=== PATIENT | female | born 1960 | race Caucasian/White ===

== ENCOUNTER 2024-11-21 10:27 | Emergency (ER) | payer OTHER, MEDICAID ==
[~2024-11-21] VITALS: Ht 154.9 cm; Wt 81.1 kg
--- NOTE | 2024-11-21 11:12 | ED.PDOC ---
Musculoskeletal HPI Comments 64 year old female presents to the ED with chief complaint of left knee pain. Patient reports that she has been experiencing left knee pain and swelling with associated nausea since a week ago when one of the verduzco's cysts behind her left knee popped. Patient relays that she has a lot of varicose veins to bilateral legs. Patient states her doctor Dr. Fong advised her to come to the ED for further evaluation. Patient denies any vomiting, numbness, weakness, chest pain, SOB, dizziness, or headache. Chief Complaint: Lower Extremity Time Seen by MD: 11:08 Primary Care Provider: NONE Reviewed Notes: Nurses Notes, Medications, Allergies Allergies: Coded Allergies: NO KNOWN ALLERGIES (Unverified , 07/27/12) Information Source: Patient Mode of Arrival: Ambulatory Location: Left Extremity Location: Knee Timing: Weeks Prehospital treatment: None Severity: Moderate Able to Move Extremity: Yes Bear Weight: Limited Pain: Moderate Mechanism: Spontaneous Circumstances: Other (Verduzco's Cyst popped) Onset of Symptoms: Spontaneous Symptoms: Swelling, Pain, Erythema DVT Risk Factors: NONE Past Medical History PAST MEDICAL HISTORY: DM, HTN Past Medical History (Other): Varicose veins Surgical History: Denies all surgeries BEAR KEEPER History: No Pertinent BEAR KEEPER History Family History Family History: Reviewed,noncontributory to illness, Unknown Social History Smoker: Cigarettes Alcohol: Denies ETOH Use Drugs: Denies Drug Use Lives In: Home Constitutional: denies: chills, diaphoresis, fatigue, fever, malaise, sweats, weakness, others EENTM: denies: blurred vision, double vision, ear bleeding, ear discharge, ear drainage, ear pain, ear ringing, eye pain, eye redness, hearing loss, mouth pain, mouth swelling, nasal discharge, nose bleeding, nose congestion, nose pain, photophobia, tearing, throat pain, throat swelling, voice changes, others Respiratory: denies: cough, hemoptysis, orthopnea, SOB at rest, shortness of breath, SOB with excertion, stridor, wheezing, others Cardiovascular: denies: chest pain, dizzy spells, diaphoresis, Dyspnea on exertion, edema, irregular heart beat, left arm pain, lightheadedness, palpitations, PND, syncope, others Gastrointestinal: reports: nausea; denies: abdomen distended, abdominal pain, blood streaked bowels, constipated, diarrhea, dysphagia, difficulty swallowing, hematemesis, melena, poor appetite, poor fluid intake, rectal bleeding, rectal pain, vomiting, others Genitourinary: denies: abnormal vagina bleeding, burning, dyspareunia, dysuria, flank pain, frequency, hematuria, incontinence, pain, , vagina discharge, urgency, others Neurological: denies: dizziness, fainting, headache, left sided numbness, left sided weakness, numbness, paresthesia, pre-existing deficit, right sided numbness, right sided weakness, seizure, speech problems, tingling, tremors, weakness, others Musculoskeletal: reports: others (Left knee swelling and pain); denies: back pain, gout, joint pain, joint swelling, muscle pain, muscle stiffness, neck pain Integumetry: denies: bruises, change in color, change in hair/nails, dryness, laceration, lesions, lumps, rash, wounds, others Allergic/Immunocompromised: denies: Difficulty Healing, Frequent Infections, Hives, Itching, others Hematologic/Lymphatic: denies: anemia, blood clots, easy bleeding, easy bruising, swollen glands, others Endocrine: denies: excessive hunger, excessive sweating, excessive thirst, excessive urination, flushing, intolerance to cold, intolerance to heat, unexplained weight gain, unexplained weight loss, others Psychiatric: denies: anxiety, bipolar disorder, depression, hopeless, panic disorder, schizophrenia, sleepless, suicidal, others All Other Systems: Reviewed and Negative Physical Exam General Appearance: Moderate Distress, Normal HEENT: Normal ENT Inspection, PERRL/EOMI Neck: Full Range of Motion, Non-Tender, Normal, Normal Inspection Respiratory: Chest Non-Tender, Lungs Clear, No Accessory Muscle Use, No Res piratory Distress, Normal Breath Sounds Cardiovascular: No Edema, No JVD, No Murmur, No Gallop, Normal Peripheral Pulses, Regular Rate/Rhythm Breast Exam: Deferred Gastrointestinal: No Organomegaly, Non Tender, No Pulsatile Mass, Normal Bowel Sounds, Soft Genitalia: Deferred Pelvic: Deferred Rectal: Deferred Extremities: No calf tenderness, Normal capillary refill, Normal range of motion, Non-tender, No pedal edema, Other (Varicose vein) Musculoskeletal : Apperance: Normal Neurologic: Alert, 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 Was a procedure done?: No Differential Diagnosis EXT Differential Diagnosis: Cellulitis, Sprain, Strain X-Ray, Labs, Meds, VS Vital Signs Date Time Temp Pulse Resp B/P (MAP) Pulse Ox O2 Delivery O2 Flow Rate FiO2 11/21/24 12:42 97.4 81 18 161/83 (109) 97 97.4 11/21/24 10:53 97.4 81 81 161/83 (109) 97 Patient alert. Came in because of swelling behind the knee. DVT study within normal limits. Vitals stable. Answering all questions. Blood pressure slightly elevated. Was given clonidine. She does have popliteal cyst. Chronic. No shortness a breath. No chest pain. No calf tenderness. Varicose veins. Explained to the patient. Was told to follow up with her primary care physician. Was told to come back if there is any problem. Time of 1ST Reevaluation: 12:08 Reevaluation 1ST: Unchanged Patient Education/Counseling: Diagnosis, Treatment Family Education/Counseling: No Family Present Additional Information I reviewed the following notes from patient's past medical encounters: None The following tests were ordered, and results were reviewed by me: Bilateral DVT US Additional Information was gathered from interviewing the following independent historians: None I reviewed and agreed with the following test results read by other providers: Bilateral DVT US I discussed treatment and results with medical personnel. Departure 1 Departure Time of Disposition: 12:52 Impression: Primary Impression: Hypertension Qualified Codes: I10 - Essential (primary) hypertension Additional Impression: Varicose vein of leg Qualified Codes: I83.92 - Asymptomatic varicose veins of left lower extremity Disposition: 01 HOME / SELF CARE / HOMELESS Condition: Good Discharged With: Self Critical Care Note Critical Care Time?: No Stability Stability form required: No Heart Score Heart Score: Heart Score Response (Comments) Value History N/A 0 EKG N/A 0 Age N/A 0 Risk Factors N/A 0 Troponin N/A 0 Total 0 I personally scribed for LUIS DE LOS SANTOS MD ([email or web address]) on 11/21/24 at 11:12. Electronically submitted by Nick Campoverde ([email or web address]). LUIS DE LOS SANTOS MD Nov 21, 2024 11:12
--- NOTE | 2024-11-21 12:30 | DVH ---
US LT Lower DVT HISTORY: dvt COMPARISON: None TECHNIQUE: Duplex Doppler evaluation of the deep venous system of the lower extremity from the common femoral veins, superficial femoral vein, great saphenous vein, deep femoral vein, popliteal vein, an d calf veins, including color Doppler and spectral/pulsed waveform analysis, was performed. FINDINGS: Left: - Common femoral vein: Compressible - Deep femoral vein: Compressible - Femoral vein: Compressible - Popliteal vein: Compressible - Posterior tibial vein: Waveforms present - Other: 3.1 x 2.1 x 1.7 cm sharpe cyst. IMPRESSION: No left lower extremity deep venous thrombosis.
[2024-11-21 13:05] VITALS: BP 140/56; PULSE 71; RESP 18; TEMP 98.4; O2SAT 95
[2024-11-21] MEDS: cloNIDine HCL 0.1 MG TAB PO ONE (13:05)
== END 2024-11-21 13:10 | disposition home or self-care (01) ==
LOC: ER 10:27
DX: I83.92 Asymptomatic varicose veins of left lower extremity (principal); I10 Essential (primary) hypertension; E11.9 Type 2 diabetes mellitus without complications; R11.0 Nausea; F17.210 Nicotine dependence, cigarettes, uncomplicated
CPT/HCPCS: 93971

== ENCOUNTER 2025-07-23 16:28 | Inpatient (IN) | payer OTHER, MEDICAID ==
[~2025-07-23] VITALS: Ht 160 cm; Wt 82.3 kg
--- NOTE | 2025-07-23 16:56 | ED.PDOC ---
History of Present Illness HPI Comments HPI: 65 year old female presents to the ED with a chief complaint of flu-like symptoms onset last night. Patient states she began experiencing fever, chills, body aches, generalized weakness, ear pain, nausea since last night. During triage, patient's temperature was 102.5 F. She is concerned for possible COVID, last time she had COVID was 2 years ago, experienced similar symptoms. Denies vomiting, diarrhea, dizziness, shortness of breath, dysuria, hematuria. No other symptoms or modifying factors present at this time. Initial Vitals BP: 152/64 HR: 104 RR: 16 O2: 95% Temp: 102.5 F Past Medical History: HTN, DM Past Surgical History: appendectomy, cholecystectomy, Social History: Denies ETOH, and drug use. Patient admits to smoking. Medications: Denies Allergies: Sulfa drugs, Levaquin, Demerol HPI: Poor Historian. REVIEW OF SYSTEMS: CONSTITUTIONAL: Denies acute: diaphoresis, chills, HEAD: Denies acute: headache, photophobia Eyes: Denies acute: Double vision, vision loss, eye pain, eye discharge. EARS: Denies acute: tinnitus, hearing loss, ear discharge, ear pain, THROAT: Denies acute: sore throat, swelling, difficulty swallowing , pain with swal lowing, change in voice. NECK: Denies acute: neck pain, neck swelling, stiff neck. HEART: Denies acute : chest pain, palpitations, LUNGS: Denies acute: SOB, wheezing, cough, hemoptysis ABDOMEN: Denies acute: abdominal pain, Nausea, Vomiting, diarrhea, melena , hematemesis, hematochezia SKIN: Denies acute: rash, redness, lesions, itchiness. EXTREMITIES: Denies acute: calf pain, numbness, tingling, weakness, denies pain in extremity. Denies acute: Low back pain. Neuro: Denies acute: focal neurological deficit, motor or sensory focal neurological deficit, tremors, seizure like activity, confusion, dizziness, change in mental status, loss of bowel or bladder function, cauda equina like symptoms. : Denies acute: dysuria, hematuria, flank pain, increase in urinary frequency. PSYCH: Denies acute: hallucination, suicidal ideation, homicidal ideation. FEMALE: Denies acute: abnormal vaginal bleeding, foul odor, unusual discharge. PHYSICAL EXAM: General: -----moderate---acute distress, awake and alert. Head: normocephalic, atraumatic. Neck: supple, trachea is midline, no swelling. Throat: Normal phonation. Eyes:, no erythema, no purulent discharge, no proptosis, no icterus. Heart: regular rate, regular rhythm, no significant murmur appreciated. Lungs: no apparent respiratory distress, Able to speak in full sentences. No wheezing, no rhonchi, no crackles. No stridors Clear to auscultation bilaterally. Abdomen: non tender to palpation, non distended, soft, no guarding, no rebound, + bowel sounds. Neuro: Awake, Alert, oriented to name, self, situation, follows commands GCS=15. Speech is normal. Skin: no petechia, no purpura, no cyanosis, non-pale, not jaundice. Lower extremities: --no - Pitting edema no deformity, no focal swelling, no calf TTP. Makes eye contact. moves all four extremities. Face: no apparent facial droop. ED COURSE: DISCLAIMER: This medical document was created using an electronic medical record system with voice recognition software and computerized dictation system. Although this document has been carefully reviewed, there might still be some phonetic and typographical errors. Occasional wrong-word or "sound-alike" substitutions may have occurred due to the inherent limitations of voice recognition software. These areas are purely typographical due to imperfections of the software programs and do not reflect any compromise in the patient's medical care. Please read the chart carefully and recognize, using context, where these substitutions have occurred. Chief Complaint: Flu like Time Seen by MD: 16:40 Reviewed Notes: Medications, Allergies Information Source: Patient, Relative Mode of Arrival: Wheelchair Timing: Days Duration: Since onset Prehospital treatment: None Severity: Moderate Fever: Temperature max (102.5) Context: Recent: None History of: Diabetes Symptoms: Fever, Chills, Ear pain Modifying Factors: Nothing Associated Signs and Symptoms: Weakness Past Medical History PAST MEDICAL HISTORY: DM, HTN Surgical History: Appendectomy, Cholecystectomy, ART OBJECTS REPAIRER History: No Pertinent ART OBJECTS REPAIRER History Family History Family History: Reviewed,noncontributory to illness, Unknown Social History Smoker: Cigarettes Alcohol: Denies ETOH Use Drugs: Denies Drug Use Lives In: Home Was a procedure done? Was a procedure done?: No X-Ray, Labs, Meds, VS Vital Signs Date Time Temp Pulse Resp B/P (MAP) Pulse Ox O2 Delivery O2 Flow Rate FiO2 07/23/25 16:31 102.5 104 16 152/64 95 102.5 Lab Test 07/23/25 20:41 07/23/25 20:17 07/23/25 18:31 07/23/25 17:22 Range/Units Blood Gas Specimen Type Arterial Blood Gas Sample Site Right radial Blood Gas Patient Temperature 37.0 Arterial Blood Date Drawn [id number] Arterial Blood pH 7.460 H 7.350-7.450 Arterial Blood Partial Pressure CO2 30.9 L 32.0-45.0 mmHg Arterial Blood Partial Pressure O2 66.4 L 83.0-108.0 mmHg Arterial Blood HCO3 21.5 21.0-28.0 mmol/L Arterial Blood Oxygen Saturation 94.1 94.0-98.0 % Arterial Blood Base Excess -1.2 -2.0-3.0 mmol/L Arterial Blood Oxyhemoglobin 92.6 L 94.0-98.0 % Arterial Blood Carboxyhemoglobin 1.0 0.5-1.5 % Arterial Blood Methemoglobin 0.6 0.0-1.5 % Horacio Test Yes Blood Gas Total Hemoglobin 15.40 12.0-16.0 g/dL Blood Gas Liter Flow 0.00 Blood Gas Modality Room air FiO2 % 21.0 Troponin I High Sensitivity < 3 L < 3 L < 3 L </=34 ng/L White Blood Count 9.6 4.4-10.8 10^3/uL Red Blood Count 4.86 4.0-5.20 10^6/uL Hemoglobin 15.0 12.2-16.2 g/dL Hematocrit 43.1 36.0-46.0 % Mean Corpuscular Volume 88.8 80.0-100.0 fL Mean Corpuscular Hemoglobin 30.8 28.0-32.0 pg Mean Corpuscular Hemoglobin Concent 34.7 32.0-36.0 g/dL Red Cell Distribution Width 13.9 11.8-14.3 % Platelet Count 236 140-450 10^3/uL Mean Platelet Volume 9.5 6.9-10.8 fL Neutrophils (%) (Auto) 76.4 37.0-80.0 % Lymphocytes (%) (Auto) 10.6 10.0-50.0 % Monocytes (%) (Auto) 11.4 0.0-12.0 % Eosinophils (%) (Auto) 1.0 0.0-7.0 % Basophils (%) (Auto) 0.6 0.0-2.0 % Neutrophils # (Auto) 7.3 1.6-8.6 10 ^3/uL Lymphocytes # (Auto) 1.0 0.4-5.4 10 ^3/uL Monocytes # (Auto) 1.1 0-1.3 10 ^3/uL Eosinophils # (Auto) 0.1 0-0.8 10 ^3/uL Basophils # (Auto) 0.1 0-0.2 10 ^3/uL Nucleated Red Blood Cells 0.1 % Sodium Level 136 136-145 mmol/L Potassium Level 4.1 3.5-5.1 mmol/L Chloride Level 102 98-107 mmol/L Carbon Dioxide Level 24 20-31 mmol/L Anion Gap 10 5-15 Blood Urea Nitrogen 14 9-23 mg/dL Creatinine 0.72 0.550-1.02 mg/dL Glomerular Filtration Rate Calc 92 >90 mL/min BUN/Creatinine Ratio 19.4 10.0-20.0 Serum Glucose 111 H 74-106 mg/dL Lactic Acid Level 1.4 0.4-2.0 mmol/L Calcium Level 9.0 8.7-10.4 mg/dL Total Bilirubin 0.3 0.2-1.0 mg/dL Aspartate Amino Transferase (AST) 46 H 13-40 U/L Alanine Aminotransferase (ALT) 45 H 7-40 U/L Alkaline Phosphatase 98 46-116 U/L Total Protein 7.1 5.7-8.2 g/dL Albumin 4.1 3.2-4.8 g/dL Test 07/23/25 17:11 Range/Units Influenza Type A Antigen Negative Negative Influenza Type B Antigen Negative Negative SARS-CoV-2 Antigen (Rapid) Positive NEGATIVE [facility] [id number] [facility] [address] Ph: [phone] DIAGNOSTIC IMAGING Diagnostic Imaging Report : [id number] Signed PATIENT: JOEY PAULA ACCT: [id number] UNIT: [id number] : 1960 LOC: ER ROOM / BED: / AGE / SEX: 65 / F ADM STATUS: REG ER SERVICE 1650 ORDERING PHYSICIAN: NEGRO GILBERT DO PROCEDURE(s): CXRP - CHEST PORTABLE REASON: fever ORDER NUMBER(s): [id number], ACCESSION NUMBER(s): [id number] CHEST RADIOGRAPH Indication: fever Technique: Single frontal view of the chest was obtained Comparison: None FINDINGS: Lines and Tubes: None Lungs: No focal consolidation. Linear densities of the left lateral lung base. Pleura: No effusion. No pneumothorax. Cardiomediastinal contours: Unremarkable Bones: No acute osseous abnormality. Surgical Clips are noted over the right axilla. IMPRESSION: Left lateral basilar atelectasis/ pneumonia. Otherwise, no evidence for acute cardiopulmonary disease. ATED BY: YAA BA DO DICTATED DATE/TIME: 07/23/251738 SIGNED BY: YAA BA DO SIGNED DATE/TIME: 07/23/251738 CC: Time of 1ST Reevaluation: 17:10 Reevaluation 1ST: Unchanged Patient Education/Counseling: Diagnosis, Treatment Family Education/Counseling: Diagnosis, Treatment Departure 1 Departure Time of Disposition: 20:28 Impression: Primary Impression: COVID-19 virus infection Additional Impressions: Fever Hypoxemia Disposition: ADMITTED INPATIENT Admit to: Tele Condition: Guarded Discharged With: Self Critical Care Note Critical Care Time?: No I personally scribed for NEGRO GILBERT DO ([email or web address]) on 07/23/25 at 16:56. Electronically submitted by Cortney Santiago ([email or web address]). I personally scribed for NEGRO GILBERT DO ([email or web address]) on 07/23/25 at 17:52. Electronically submitted by Cortney Santiago ([email or web address]). NEGRO GILBERT DO Jul 23, 2025 16:56
--- NOTE | 2025-07-23 17:41 | DVH ---
CHEST RADIOGRAPH Indication: fever Technique: Single frontal view of the chest was obtained Comparison: None FINDINGS: Lines and Tubes: None Lungs: No focal consolidation. Linear densities of the left lateral lung base. Pleura: No effusion. No pneumothorax. Cardiomediastinal contours: Unremarkable Bones: No acute osseous abnormality. Surgical Clips are noted over the right axilla. IMPRESSION: Left lateral basilar atelectasis/ pneumonia. Otherwise, no evidence for acute cardiopulmonary diseas e.
[2025-07-23 17:58] LABS: Hematocrit 43.1 % (36.0-46.0); Hemoglobin 15.0 g/dL (12.2-16.2); Mean Corpuscular Hemoglobin 30.8 pg (28.0-32.0); Mean Corpuscular Volume 88.8 fL (80.0-100.0); Nucleated Red Blood Cells % 0.1 %
[2025-07-23 18:04] LABS: Albumin 4.1 g/dL (3.2-4.8); Alkaline Phosphatase 98 U/L (46-116); Anion Gap 10 (5-15); BUN/Creatinine Ratio 19.4 (10.0-20.0); Blood Urea Nitrogen 14 mg/dL (9-23); Calcium 9.0 mg/dL (8.7-10.4); Carbon Dioxide 24 mmol/L (20-31); Chloride 102 mmol/L (98-107); Potassium 4.1 mmol/L (3.5-5.1); Total Protein 7.1 g/dL (5.7-8.2)
[2025-07-23 18:05] LABS: Bilirubin, Total 0.3 mg/dL (0.2-1.0)
[2025-07-23 18:11] LABS: Alanine Aminotransferase 45 U/L (7-40); Glucose 111 mg/dL (74-106); Sodium 136 mmol/L (136-145)
[2025-07-23 18:53] LABS: COVID19 ANTIGEN SOFIA FIA POSITIVE (NEGATIVE)
[2025-07-23 20:46] LABS: Base Excess -1.2 mmol/L (-2.0-3.0)
[2025-07-24] VITALS (7 sets, daily range): BP systolic 122–148; BP diastolic 55–76; PULSE 77–89; RESP 17–18; TEMP 97.8–98.7; O2SAT 94–96
[2025-07-24] MEDS ORDERED: HYDROcodone-ACET 5/325MG TAB PO PRN (04:30)
[2025-07-24] MEDS ORDERED: ALBUTEROL SULF HFA 90MCG INH 200DOSE IN PRN (04:30)
[2025-07-24] MEDS ORDERED: ONDANSETRON HCL 4 MG/2 ML VIAL IV PRN (04:30)
[2025-07-24] MEDS ORDERED: REMDESIVIR PER PHARMACY 0 ML IV SCH (04:30)
[2025-07-24] MEDS ORDERED: MORPHINE SULFATE INJ 2 MG/ml SYRG IV PRN (04:30)
[2025-07-24] MEDS ORDERED: NITROGLYCERIN 0.4 MG SL TAB SL PRN (04:30)
--- NOTE | 2025-07-24 04:36 | DVHHP2 ---
History of Present Illness Reason for Visit: Flu-like symptoms History of Present Illness 65-year-old female presents for evaluation of flu-like symptoms. Patient endorses a one day history of body aches with generalized weakness, fever, nonproductive cough. No chest pain or palpitations. Past Medical History Hypertension, COVID-19 Past Surgical History Cholecystectomy, , appendectomy Family History Noncontributory Smoke: No ALCOHOL: none Drugs: None Lives: with Family Review of Systems Review of Systems Review of systems are currently negative otherwise addressed in HPI. Allergies: Coded Allergies: NO KNOWN ALLERGIES (Unverified , 07/27/12) Exam Vital Signs Vital Signs Date Time Temp Pulse Resp B/P (MAP) Pulse Ox O2 Delivery O2 Flow Rate FiO2 07/24/25 04:27 98.7 89 18 122/55 (77) 96 98.7 Exam Gen: 65-year-old female in mild distress Skin: Warm, dry, normal color and texture, no rash. HEENT: Normocephalic atraumatic, mucous membranes moist and pink. Neck: Cervical and supraclavicular nodes normal without enlargement, trachea is midline, thyroid gland is normal without masses. Pulmonary: Diminished breath sounds bilaterally Cardiac: Regular rate and rhythm. No murmur Abdomen: Soft, nontender, nondistended, bowel sounds present all 4 quadrants, no guarding, no rigidity, no organomegaly. Extremities: No cyanosis, clubbing, no edema Neuro: Cranial nerves II through XII grossly intact, normal affect and speech, no focal motor deficits. Labs/Xrays ORDERING PHYSICIAN: NEGRO GILBERT DO PROCEDURE(s): CXRP - CHEST PORTABLE REASON: fever ORDER NUMBER(s): [id number], ACCESSION NUMBER(s): [id number] CHEST RADIOGRAPH Indication: fever Technique: Single frontal view of the chest was obtained Comparison: None FINDINGS: Lines and Tubes: None Lungs: No focal consolidation. Linear densities of the left lateral lung base. Pleura: No effusion. No pneumothorax. Cardiomediastinal contours: Unremarkable Bones: No acute osseous abnormality. Surgical Clips are noted over the right axilla. IMPRESSION: Left lateral basilar atelectasis/ pneumonia. Otherwise, no evidence for acute cardiopulmonary disease. ATED BY: YAA BA DO Labs Test 07/23/25 20:41 07/23/25 20:17 07/23/25 17:22 07/23/25 17:11 Range/Units Blood Gas Specimen Type Arterial Blood Gas Sample Site Right radial Blood Gas Patient Temperature 37.0 Arterial Blood Date Drawn [id number] Arterial Blood pH 7.460 H 7.350-7.450 Arterial Blood Partial Pressure CO2 30.9 L 32.0-45.0 mmHg Arterial Blood Partial Pressure O2 66.4 L 83.0-108.0 mmHg Arterial Blood HCO3 21.5 21.0-28.0 mmol/L Arterial Blood Oxygen Saturation 94.1 94.0-98.0 % Arterial Blood Base Excess -1.2 -2.0-3.0 mmol/L Arterial Blood Oxyhemoglobin 92.6 L 94.0-98.0 % Arterial Blood Carboxyhemoglobin 1.0 0.5-1.5 % Arterial Blood Methemoglobin 0.6 0.0-1.5 % Horacio Test Yes Blood Gas Total Hemoglobin 15.40 12.0-16.0 g/dL Blood Gas Liter Flow 0.00 Blood Gas Modality Room air FiO2 % 21.0 Troponin I High Sensitivity < 3 L </=34 ng/L White Blood Count 9.6 4.4-10.8 10^3/uL Red Blood Count 4.86 4.0-5.20 10^6/uL Hemoglobin 15.0 12.2-16.2 g/dL Hematocrit 43.1 36.0-46.0 % Mean Corpuscular Volume 88.8 80.0-100.0 fL Mean Corpuscular Hemoglobin 30.8 28.0-32.0 pg Mean Corpuscular Hemoglobin Concent 34.7 32.0-36.0 g/dL Red Cell Distribution Width 13.9 11.8-14.3 % Platelet Count 236 140-450 10^3/uL Mean Platelet Volume 9.5 6.9-10.8 fL Neutrophils (%) (Auto) 76.4 37.0-80.0 % Lymphocytes (%) (Auto) 10.6 10.0-50.0 % Monocytes (%) (Auto) 11.4 0.0-12.0 % Eosinophils (%) (Auto) 1.0 0.0-7.0 % Basophils (%) (Auto) 0.6 0.0-2.0 % Neutrophils # (Auto) 7.3 1.6-8.6 10 ^3/uL Lymphocytes # (Auto) 1.0 0.4-5.4 10 ^3/uL Monocytes # (Auto) 1.1 0-1.3 10 ^3/uL Eosinophils # (Auto) 0.1 0-0.8 10 ^3/uL Basophils # (Auto) 0.1 0-0.2 10 ^3/uL Nucleated Red Blood Cells 0.1 % Sodium Level 136 136-145 mmol/L Potassium Level 4.1 3.5-5.1 mmol/L Chloride Level 102 98-107 mmol/L Carbon Dioxide Level 24 20-31 mmol/L Anion Gap 10 5-15 Blood Urea Nitrogen 14 9-23 mg/dL Creatinine 0.72 0.550-1.02 mg/dL Glomerular Filtration Rate Calc 92 >90 mL/min BUN/Creatinine Ratio 19.4 10.0-20.0 Serum Glucose 111 H 74-106 mg/dL Lactic Acid Level 1.4 0.4-2.0 mmol/L Calcium Level 9.0 8.7-10.4 mg/dL Total Bilirubin 0.3 0.2-1.0 mg/dL Aspartate Amino Transferase (AST) 46 H 13-40 U/L Alanine Aminotransferase (ALT) 45 H 7-40 U/L Alkaline Phosphatase 98 46-116 U/L Total Protein 7.1 5.7-8.2 g/dL Albumin 4.1 3.2-4.8 g/dL Influenza Type A Antigen Negative Negative Influenza Type B Antigen Negative Negative SARS-CoV-2 Antigen (Rapid) Positive NEGATIVE SEPSIS Sepsis Screen Date sepsis recognized/suspect: Jul 23, 2025 Time Sepsis recognized/suspect: 1634 Recent Procedure: No On Antibiotic Therapy: No Respiratory Rate >20: No Heart Rate >90: Yes Temp<36 C (96.8 F) or >38.3 C: Yes SBP <90 or MAP <65 mmHG: No New Acute Mental Status Change: No Is the patient on CPAP, BIPAP,: No Physician Orders Isolation Order (07/24/25 04:28) Precautions (Contact,Droplets, (07/24/25 04:28) Complete Blood Count (07/24/25 04:28) Comprehensive Metabolic Panel (07/24/25 04:28) Lactic Acid W/ Reflex Order (07/24/25 04:28) C-Reactive Protein (07/24/25 04:) D-Dimer (07/24/25:) Ferritin (07/24/25 04:28) Lactate Dehydrogenase (07/24/25 04:28) Electrocardigram (07/24/25 04:) Chest Two Views Routine (07/24/25:) Magnesium (07/24/25:) Thyroid Stimulating Hormone (07/24/25 04:28) Complete Blood Count (07/25/25 05:30) Comprehensive Metabolic Panel (07/25/25 05:30) Complete Blood Count (07/28/25 05:) Comprehensive Metabolic Panel (07/28/25 05:) Lactate Dehydrogenase (07/28/25 05:30) Ferritin (07/28/25 05:30) Chest Portable (07/25/25 07:00) Chest Portable (07/28/25 07:00) Electrocardigram (07/28/25 08:00) Oob To Chair Q4HR (07/24/25 04:28) Incentive Spirometry Q 1hr (07/24/25 04:28) Urinalysis (07/24/25:) Bulb Farmworker (07/24/25:) C-Reactive Protein (07/28/25:) Hemoglobin A1c (07/24/25:) Vitamin D, 25-Hydroxy (07/24/25:28) Zinc 220 Mg Po Daily (07/24/25 10:00) Albuterol Inh (Covid-19) 90mcg (07/24/25 04:30) Decadron 6mg Iv Daily (07/24/25 10:00) Remdesivir Per Rx (Mild-Mod) (07/24/25 04:30) Lovenox 40mg Daily (07/24/25 10:00) Azithromycin 500mg/ 250ml (Zithromax 50 (07/24/25 10:00) Metoprolol Tartrate Tablet (Lopressor Ta (07/24/25 10:00) Admit (07/24/25 04:30) Oxygen Per Hour (07/24/25 04:30) Hydrocodone-Acet 5/325mg Tab ([place] 5/32 (07/24/25 04:30) Temazepam (Restoril) (07/24/25 04:30) Ondansetron Hcl (Zofran) (07/24/25 04:30) Cardiac Diet-2gna,Lofat,Lochol (07/24/25 Breakfast) Condition: Fair (07/24/25 04:30) Acetaminophen Tablet (Tylenol Tablet) (07/24/25 04:30) Bedrest With Bathroom Privileg (07/24/25 04:30) Nitroglycerin Sublingual (Ntrostat Subli (07/24/25 04:30) Morphine Sulfate Injection (07/24/25 04:30) Stat Ekg For Chest Pain (07/24/25 04:30) Notify Of Changes From Base (07/24/25 04:30) Bulb Farmworker For 24 Hours (07/24/25 04:30) Emergency Dysrhythmia Protocol (07/24/25 04:30) Rhythm Strips Once Every Shift (07/24/25 04:30) Oxygen By Nasal Cannula (07/24/25 04:30) Vital Signs Date Time Temp Pulse Resp B/P (MAP) Pulse Ox O2 Delivery O2 Flow Rate FiO2 07/24/25 04:27 98.7 89 18 122/55 (77) 96 98.7 Laboratory Tests Test 07/23/25 17:22 Lactic Acid Level 1.4 mmol/L (0.4-2.0) White Blood Count 9.6 10^3/uL (4.4-10.8) Assessment/Plan Assessment/Plan Assessment COVID-19 Pneumonia Hypoxemia Hypertension Plan Admit the patient to telemetry to the hospitalist COVID-19 protocol Resume home medications Continue treatment per orders. Plan discussed with: Patient My Orders Orders - ROGELIO ANDRADE Procedure Category Date Status Time Isolation Order ORDERS 07/24/25 Transmitted 04:28 Precautions TOÑO 07/24/25 In Process (Contact,Droplets, 04:28 Complete Blood Count LAB 07/24/25 Logged 04:28 Comprehensive LAB 07/24/25 Logged Metabolic Panel 04:28 Lactic Acid W/ Reflex LAB 07/24/25 Logged Order 04:28 C-Reactive Protein LAB 07/24/25 Logged 04:28 D-Dimer LAB 07/24/25 Logged 04:28 Ferritin LAB 07/24/25 Logged 04:28 Lactate Dehydrogenase LAB 07/24/25 Logged 04:28 Electrocardigram EKG 07/24/25 Logged 04:28 Chest Two Views XY 07/24/25 Logged Routine 04:28 Magnesium LAB 07/24/25 Logged 04:28 Thyroid Stimulating LAB 07/24/25 Logged Hormone 04:28 Complete Blood Count LAB 07/25/25 Verified 05:30 Comprehensive LAB 07/25/25 Verified Metabolic Panel 05:30 Complete Blood Count LAB 07/28/25 Verified 05:30 Comprehensive LAB 07/28/25 Verified Metabolic Panel 05:30 Lactate Dehydrogenase LAB 07/28/25 Verified 05:30 Ferritin LAB 07/28/25 Verified 05:30 Chest Portable XY 07/25/25 Logged 07:00 Chest Portable XY 07/28/25 Logged 07:00 Electrocardigram EKG 07/28/25 Logged 08:00 Oob To Chair TOÑO 07/24/25 In Process 04:28 Incentive Spirometry ORDERS 07/24/25 Transmitted Q 1hr 04:28 Urinalysis LAB 07/24/25 Logged 04:28 Bulb Farmworker ORDERS 07/24/25 Transmitted 04:28 C-Reactive Protein LAB 07/28/25 Verified 04:28 Hemoglobin A1c LAB 07/24/25 Logged 04:28 Vitamin D, 25-Hydroxy LAB 07/24/25 Logged 04:28 Zinc 220 Mg Po Daily PHA 07/24/25 Verified 10:00 Albuterol Inh PHA 07/24/25 Verified (Covid-19) 90mcg 04:30 Decadron 6mg Iv Daily PHA 07/24/25 Verified 10:00 Remdesivir Per Rx PHA 07/24/25 Verified (Mild-Mod) 04:30 Lovenox 40mg Daily PHA 07/24/25 Verified 10:00 Azithromycin 500mg/ PHA 07/24/25 Verified 250ml (Zithromax 50 10:00 Metoprolol Tartrate PHA 07/24/25 Verified Tablet (Lopressor Ta 10:00 Admit ADMIT 07/24/25 Verified 04:30 Oxygen Per Hour RT 07/24/25 Verified 04:30 Hydrocodone-Acet PHA 07/24/25 Verified 5/325mg Tab ([place] 04:30 Temazepam (Restoril) PHA 07/24/25 Verified 04:30 Ondansetron Hcl [facility] 07/24/25 Verified (Zofran) 04:30 Cardiac DIET 07/24/25 Verified Diet-2gna,Lofat,Lochol Breakfast Condition: Fair [facility] 07/24/25 Verified 04:30 Acetaminophen Tablet [facility] 07/24/25 Verified (Tylenol Tablet) 04:30 Bedrest With Bathroom [facility] 07/24/25 Verified Privileg 04:30 Nitroglycerin [facility] 07/24/25 Verified Sublingual (Ntrostat 04:30 Morphine Sulfate [facility] 07/24/25 Verified Injection 04:30 Stat Ekg For Chest [facility] 07/24/25 Verified Pain 04:30 Notify Md Of Changes [facility] 07/24/25 Verified From Base 04:30 Bulb Farmworker For [facility] 07/24/25 Verified 24 Hours 04:30 Emergency Dysrhythmia [facility] 07/24/25 Verified Protocol 04:30 Rhythm Strips Once [facility] 07/24/25 Verified Every Shift 04:30 Oxygen By Nasal RT 07/24/25 Verified Cannula 04:30 Date of Service: Jul 24, 2025 Billing Provider: ROGELIO ANDRADE Common Visit Codes: [id number] INP/OBS CARE (HIGH) ROGELIO ANDRADE Jul 24, 2025 04:36
--- NOTE | 2025-07-24 04:51 | DVH ---
CHEST RADIOGRAPH Indication: suspected Covid -19 pneumonia Technique: Frontal and lateral view of the chest was obtained Comparison: XY CHEST PORTABLE on DOS: 07/23/25 FINDINGS: Lines and Tubes: None Lungs: Clear Pleura: No effusion. No pneumothorax. Cardiomediastinal contours: Unremarkable Bones: Unremarkable IMPRESSION: 1. No evidence of acute disease.
[2025-07-24 05:18] LABS: Hematocrit 43.5 % (36.0-46.0); Hemoglobin 15.0 g/dL (12.2-16.2); Mean Corpuscular Hemoglobin 30.7 pg (28.0-32.0); Mean Corpuscular Volume 89.3 fL (80.0-100.0); Nucleated Red Blood Cells % 0.1 %
[2025-07-24 05:36] LABS: Alanine Aminotransferase 38 U/L (7-40); Albumin 4.2 g/dL (3.2-4.8); Alkaline Phosphatase 96 U/L (46-116); Anion Gap 9 (5-15); BUN/Creatinine Ratio 15.1 (10.0-20.0); Bilirubin, Total 0.3 mg/dL (0.2-1.0); Blood Urea Nitrogen 13 mg/dL (9-23); Calcium 8.9 mg/dL (8.7-10.4); Carbon Dioxide 27 mmol/L (20-31); Chloride 102 mmol/L (98-107); Magnesium 2.2 mg/dL (1.6-2.6); Potassium 3.5 mmol/L (3.5-5.1); Sodium 138 mmol/L (136-145); Total Protein 7.5 g/dL (5.7-8.2)
[2025-07-24 05:55] LABS: Glucose 110 mg/dL (74-106)
[2025-07-24 06:17] LABS: Thyroid Stimulating Hormone 1.5 uIU/mL (0.55-4.78)
[2025-07-24] MEDS: ACETAMINOPHEN 500 MG TAB or CAP PO ONE (06:48)
[2025-07-24] MEDS: SODIUM CHLORIDE 0.9% 1,000 ML IV ONE (07:03)
[2025-07-24] MEDS ORDERED: METO25TA36 PO (09:45)
[2025-07-24] MEDS: ZINC SULFATE 220mg CAP or TAB PO SCH (09:51)
[2025-07-24] MEDS: ENOXAPARIN SOD 40 MG/0.4 ML SYRINGE SC SCH (09:52)
[2025-07-24] MEDS: AZITHROMYCIN 500MG/ 250ML 250 ML IV SCH (09:53)
[2025-07-24] MEDS: METOPROLOL TARTRATE 25 MG TAB PO SCH (09:54)
[2025-07-24] MEDS: REMDESIVIR 200mg in NS 210mL LOADING DOSE ADULT IV ONE (13:32)
--- NOTE | 2025-07-24 13:47 | DVHPN2 ---
Changes from previous H/P or p: No Changes Objective Vitals Vital Signs Date Time Temp Pulse Resp B/P (MAP) Pulse Ox O2 Delivery O2 Flow Rate FiO2 07/24/25 10:54 72 128/88 07/24/25 09:30 97.8 18 96 97.8 07/24/25 08:16 Room Air* 0 21 Medications Current Medications Medications Dose Ordered Sig/Eron Route Start Time Stop Time Status Last Admin Dose Admin Zinc Sulfate 220 mg DAILY PO 07/24/25 10:00 07/24/25 09:51 220 MG Albuterol 90 mcg TIDPRN PRN IN 07/24/25 04:30 Dexamethasone Sodium Phosphate 6 mg DAILY IV 07/24/25 10:00 08/03/25 09:59 07/24/25 09:52 6 MG Remdesivir 0 ml @ 0 mls/hr PER PHARMACY IV 07/24/25 04:30 07/27/25 04:29 Enoxaparin Sodium 40 mg DAILY SC 07/24/25 10:00 07/24/25 09:52 40 MG Azithromycin 250 ml @ 125 mls/hr DAILY IV 07/24/25 10:00 07/24/25 09:53 125 MLS/HR Metoprolol Tartrate 25 mg BID PO 07/24/25 10:00 07/24/25 09:54 25 MG Acetaminophen/ Hydrocodone Bitart 1 tab Q4HP PRN PO 07/24/25 04:30 Temazepam 15 mg QHSP PRN PO 07/24/25 04:30 Ondansetron HCl 4 mg Q4HP PRN IV 07/24/25 04:30 Acetaminophen 650 mg Q6HP PRN PO 07/24/25 04:30 Nitroglycerin 0.4 mg Q5MINP PRN SL 07/24/25 04:30 Morphine Sulfate 2 mg Q30M PRN IV 07/24/25 04:30 Remdesivir 100 mg/ Sodium Chloride 250 ml @ 250 mls/hr DAILY@1500 IV 07/25/25 15:00 07/26/25 15:59 Laboratory Results Laboratory Tests 07/24/25 04:50 Chemistry Test 07/23/25 17:22 07/24/25 04:50 Albumin 4.1 g/dL (3.2-4.8) 4.2 g/dL (3.2-4.8) Calcium Level 9.0 mg/dL (8.7-10.4) 8.9 mg/dL (8.7-10.4) Total Protein 7.1 g/dL (5.7-8.2) 7.5 g/dL (5.7-8.2) Magnesium Level 2.2 mg/dL (1.6-2.6) Coagulation Test 07/24/25 04:50 D-Dimer, Quantitative 0.94 mg/L FEU (0.0-0.49) H LFT Test 07/23/25 17:22 07/24/25 04:50 Alanine Aminotransferase (ALT) 45 U/L (7-40) H 38 U/L (7-40) Alkaline Phosphatase 98 U/L (46-116) 96 U/L (46-116) Aspartate Amino Transferase (AST) 46 U/L (13-40) H 37 U/L (13-40) Total Bilirubin 0.3 mg/dL (0.2-1.0) 0.3 mg/dL (0.2-1.0) HgA1c, TSH Test 07/24/25 04:50 Hemoglobin A1c 6.2 % A1C (<5.7) H Thyroid Stimulating Hormone (TSH) 1.50 uIU/mL (0.55-4.78) Blood Gas Results Test 07/23/25 20:41 Arterial Blood pH 7.460 (7.350-7.450) FiO2 % 21.0 Labs and/or images reviewed: Labs reviewed by me, Image(s) reviewed by me Assessment/Plan Assessment/Plan COVID-19 Left lower lobe community-acquired Pneumonia: Azithromycin Decadron zinc vitamin-C remdesivir Hypoxemia Hypertension Time time spent 50 minutes Advanced care planning time 20 mts Plan discussed with: Patient Date of Service: Jul 24, 2025 Billing Provider: ALISTAIR DRAPER MD Common Visit Codes: [id number] INP/OBS CARE(HIGH) Secondary Visit Codes: [id number] CARE PLAN 30 MINUTES ALISTAIR DRAPER MD Jul 24, 2025 13:47
[2025-07-24] MEDS: ASCORBIC ACID 500 MG TAB PO SCH (21:43)
[2025-07-24] MEDS: ACETAMINOPHEN 325 MG TAB PO PRN (21:50)
[2025-07-25] VITALS (8 sets, daily range): BP systolic 139–154; BP diastolic 61–87; PULSE 61–74; RESP 18; TEMP 97–97.8; O2SAT 94–98
--- NOTE | 2025-07-25 05:52 | DVH ---
CHEST RADIOGRAPH Indication: Covid-19 pneumonia Technique: 1 view Comparison: Previous study chest radiographs FINDINGS: Lines and Tubes: External leads. Lungs/Pleura: No focal consolidation, pleural effusion or pneumothorax. Cardiomediastinum: Unremarkable. Other: No acute osseous abnormality. IMPRESSION: 1. No acute cardiopulmonary abnormality or significant change from the previous day.
[2025-07-25 05:56] LABS: Hematocrit 41.8 % (36.0-46.0); Hemoglobin 14.5 g/dL (12.2-16.2); Mean Corpuscular Hemoglobin 31.0 pg (28.0-32.0); Mean Corpuscular Volume 89.6 fL (80.0-100.0); Nucleated Red Blood Cells % 0.0 %
[2025-07-25 06:13] LABS: Alanine Aminotransferase 78 U/L (7-40); Albumin 3.9 g/dL (3.2-4.8); Alkaline Phosphatase 88 U/L (46-116); Anion Gap 8 (5-15); BUN/Creatinine Ratio 15.6 (10.0-20.0); Bilirubin, Total 0.2 mg/dL (0.2-1.0); Blood Urea Nitrogen 10 mg/dL (9-23); Calcium 8.7 mg/dL (8.7-10.4); Carbon Dioxide 24 mmol/L (20-31); Chloride 107 mmol/L (98-107); Glucose 151 mg/dL (74-106); Potassium 4.2 mmol/L (3.5-5.1); Sodium 139 mmol/L (136-145); Total Protein 7.0 g/dL (5.7-8.2)
[2025-07-25] MEDS: CHOLECALCIFEROL (VITD3) 1,000UNIT=25mCg TAB PO SCH (09:10)
[2025-07-25] MEDS: REMDESIVIR 100mg in NS 230mL (3 DAY REGIMEN) IV SCH (15:20)
[2025-07-25] MEDS: TEMAZEPAM 15 MG CAP PO PRN (21:34)
[2025-07-26 05:00] VITALS: BP 134/69; PULSE 54; RESP 18; TEMP 98.2; O2SAT 94
[2025-07-26 08:00] VITALS: PULSE 46
--- NOTE | 2025-07-26 08:24 | DVHPN2 ---
Reviewed: Care Plan Changes from previous H/P or p: No Changes Objective Vitals Vital Signs Date Time Temp Pulse Resp B/P (MAP) Pulse Ox O2 Delivery O2 Flow Rate FiO2 07/26/25 05:00 98.2 54 18 134/69 (90) 94 98.2 07/25/25 20:00 Room Air* 0 21 Intake/Output Intake and Output 07/26/25 07:00 Intake Total 2394 ml Balance 2394 ml Intake Oral 1890 ml IV Total 500 ml Tube Feeding 4 ml # Voids 5 # Bowel Movements 2 Medications Current Medications Medications Dose Ordered Sig/Eron Route Start Time Stop Time Status Last Admin Dose Admin Zinc Sulfate 220 mg DAILY PO 07/24/25 10:00 07/25/25 09:10 220 MG Albuterol 90 mcg TIDPRN PRN IN 07/24/25 04:30 Cancel Dexamethasone Sodium Phosphate 6 mg DAILY IV 07/24/25 10:00 08/03/25 09:59 07/25/25 09:09 6 MG Remdesivir 0 ml @ 0 mls/hr PER PHARMACY IV 07/24/25 04:30 07/27/25 04:29 Enoxaparin Sodium 40 mg DAILY SC 07/24/25 10:00 07/25/25 09:11 40 MG Azithromycin 250 ml @ 125 mls/hr DAILY IV 07/24/25 10:00 07/25/25 09:10 125 MLS/HR Metoprolol Tartrate 25 mg BID PO 07/24/25 10:00 07/25/25 21:34 25 MG Acetaminophen/ Hydrocodone Bitart 1 tab Q4HP PRN PO 07/24/25 04:30 Temazepam 15 mg QHSP PRN PO 07/24/25 04:30 07/25/25 21:34 15 MG Ondansetron HCl 4 mg Q4HP PRN IV 07/24/25 04:30 Acetaminophen 650 mg Q6HP PRN PO 07/24/25 04:30 07/24/25 21:50 650 MG Nitroglycerin 0.4 mg Q5MINP PRN SL 07/24/25 04:30 Morphine Sulfate 2 mg Q30M PRN IV 07/24/25 04:30 Remdesivir 100 mg/ Sodium Chloride 250 ml @ 250 mls/hr DAILY@1500 IV 07/25/25 15:00 07/26/25 15:59 07/25/25 15:20 250 MLS/HR Ascorbic Acid 500 mg BID PO 07/24/25 22:00 07/25/25 21:34 500 MG Cholecalciferol 4,000 unit DAILY PO 07/25/25 10:00 07/25/25 09:10 4,000 UNIT Laboratory Results Laboratory Tests 07/25/25 05:25 Microbiology Microbiology Date/Time Source Procedure Growth Status 07/23/25 17:22 Blood Blood Culture - Preliminary NO GROWTH AFTER 48 HOURS OF INCUBATION. Resulted Labs and/or images reviewed: Labs reviewed by me, Image(s) reviewed by me Assessment/Plan Assessment/Plan Late entry COVID-19 positive Acute hypoxic respiratory failure secondary to COVID pneumonia, improving Left lower lobe community-acquired Pneumonia: Azithromycin Decadron zinc vitamin-C remdesivir, improving Hypoxemia Hypertension Time time spent 50 minutes Plan discussed with: Patient Date of Service: Jul 25, 2025 Billing Provider: ALISTAIR DRAPER MD Common Visit Codes: [id number] INP/OBS CARE(HIGH) ALISTAIR DRAPER MD Jul 26, 2025 08:24
--- NOTE | 2025-07-26 08:25 | DVHPN2 ---
Reviewed: Care Plan Changes from previous H/P or p: No Changes Objective Vitals Vital Signs Date Time Temp Pulse Resp B/P (MAP) Pulse Ox O2 Delivery O2 Flow Rate FiO2 07/26/25 05:00 98.2 54 18 134/69 (90) 94 98.2 07/25/25 20:00 Room Air* 0 21 Intake/Output Intake and Output 07/26/25 07:00 Intake Total 2394 ml Balance 2394 ml Intake Oral 1890 ml IV Total 500 ml Tube Feeding 4 ml # Voids 5 # Bowel Movements 2 Medications Current Medications Medications Dose Ordered Sig/Eron Route Start Time Stop Time Status Last Admin Dose Admin Zinc Sulfate 220 mg DAILY PO 07/24/25 10:00 07/25/25 09:10 220 MG Albuterol 90 mcg TIDPRN PRN IN 07/24/25 04:30 Cancel Dexamethasone Sodium Phosphate 6 mg DAILY IV 07/24/25 10:00 08/03/25 09:59 07/25/25 09:09 6 MG Remdesivir 0 ml @ 0 mls/hr PER PHARMACY IV 07/24/25 04:30 07/27/25 04:29 Enoxaparin Sodium 40 mg DAILY SC 07/24/25 10:00 07/25/25 09:11 40 MG Azithromycin 250 ml @ 125 mls/hr DAILY IV 07/24/25 10:00 07/25/25 09:10 125 MLS/HR Metoprolol Tartrate 25 mg BID PO 07/24/25 10:00 07/25/25 21:34 25 MG Acetaminophen/ Hydrocodone Bitart 1 tab Q4HP PRN PO 07/24/25 04:30 Temazepam 15 mg QHSP PRN PO 07/24/25 04:30 07/25/25 21:34 15 MG Ondansetron HCl 4 mg Q4HP PRN IV 07/24/25 04:30 Acetaminophen 650 mg Q6HP PRN PO 07/24/25 04:30 07/24/25 21:50 650 MG Nitroglycerin 0.4 mg Q5MINP PRN SL 07/24/25 04:30 Morphine Sulfate 2 mg Q30M PRN IV 07/24/25 04:30 Remdesivir 100 mg/ Sodium Chloride 250 ml @ 250 mls/hr DAILY@1500 IV 07/25/25 15:00 07/26/25 15:59 07/25/25 15:20 250 MLS/HR Ascorbic Acid 500 mg BID PO 07/24/25 22:00 07/25/25 21:34 500 MG Cholecalciferol 4,000 unit DAILY PO 07/25/25 10:00 07/25/25 09:10 4,000 UNIT Laboratory Results Laboratory Tests 07/25/25 05:25 Microbiology Microbiology Date/Time Source Procedure Growth Status 07/23/25 17:22 Blood Blood Culture - Preliminary NO GROWTH AFTER 48 HOURS OF INCUBATION. Resulted Labs and/or images reviewed: Labs reviewed by me, Image(s) reviewed by me Assessment/Plan Assessment/Plan COVID-19 positive pneumonia improving, Acute hypoxic respiratory failure secondary to COVID pneumonia, currently on room air Left lower lobe community-acquired Pneumonia: Azithromycin Decadron zinc vitamin-C remdesivir, improving Hypoxemia Hypertension Time time spent 50 minutes Plan discussed with: Patient Date of Service: Jul 26, 2025 Billing Provider: ALISTAIR DRAPER MD Common Visit Codes: [id number] INP/OBS CARE(HIGH) ALISTAIR DRAPER MD Jul 26, 2025 08:25
[2025-07-26 08:40] VITALS: BP 155/92; PULSE 68; RESP 17; TEMP 98.9; O2SAT 92
[2025-07-26] MEDS ORDERED: AZIT500T66 PO (09:21)
[2025-07-26] MEDS ORDERED: THIA100T13 PO (09:21)
[2025-07-26] MEDS ORDERED: FOLI-119 PO (09:21)
[2025-07-26] MEDS ORDERED: ASCO500C49 PO (09:21)
--- NOTE | 2025-07-26 09:49 | DVHDS2 ---
Discharge Summary Date of Admission Jul 24, 2025 at 04:30 Date of Discharge: Jul 26, 2025 Admitting Diagnosis Shortness of breath Wounds: None Labs/Diagnostic Data: Laboratory Results Test 07/25/25 05:25 07/24/25 04:50 07/23/25 20:41 07/23/25 20:17 White Blood Count 11.1 10^3/uL (4.4-10.8) Red Blood Count 4.67 10^6/uL (4.0-5.20) Hemoglobin 14.5 g/dL (12.2-16.2) Hematocrit 41.8 % (36.0-46.0) Mean Corpuscular Volume 89.6 fL (80.0-100.0) Mean Corpuscular Hemoglobin 31.0 pg (28.0-32.0) Mean Corpuscular Hemoglobin Concent 34.6 g/dL (32.0-36.0) Red Cell Distribution Width 13.8 % (11.8-14.3) Platelet Count 210 10^3/uL (140-450) Mean Platelet Volume 9.5 fL (6.9-10.8) Neutrophils (%) (Auto) 74.8 % (37.0-80.0) Lymphocytes (%) (Auto) 13.6 % (10.0-50.0) Monocytes (%) (Auto) 11.5 % (0.0-12.0) Eosinophils (%) (Auto) 0.0 % (0.0-7.0) Basophils (%) (Auto) 0.1 % (0.0-2.0) Neutrophils # (Auto) 8.3 10 ^3/uL (1.6-8.6) Lymphocytes # (Auto) 1.5 10 ^3/uL (0.4-5.4) Monocytes # (Auto) 1.3 10 ^3/uL (0-1.3) Eosinophils # (Auto) 0 10 ^3/uL (0-0.8) Basophils # (Auto) 0 10 ^3/uL (0-0.2) Nucleated Red Blood Cells 0.0 % Sodium Level 139 mmol/L (136-145) Potassium Level 4.2 mmol/L (3.5-5.1) Chloride Level 107 mmol/L (98-107) Carbon Dioxide Level 24 mmol/L (20-31) Anion Gap 8 (5-15) Blood Urea Nitrogen 10 mg/dL (9-23) Creatinine 0.64 mg/dL (0.550-1.02) Glomerular Filtration Rate Calc 97 mL/min (>90) BUN/Creatinine Ratio 15.6 (10.0-20.0) Serum Glucose 151 mg/dL (74-106) Calcium Level 8.7 mg/dL (8.7-10.4) Total Bilirubin 0.2 mg/dL (0.2-1.0) Aspartate Amino Transferase (AST) 60 U/L (13-40) Alanine Aminotransferase (ALT) 78 U/L (7-40) Alkaline Phosphatase 88 U/L (46-116) Total Protein 7.0 g/dL (5.7-8.2) Albumin 3.9 g/dL (3.2-4.8) D-Dimer, Quantitative 0.94 mg/L FEU (0.0-0.49) Hemoglobin A1c 6.2 % A1C (<5.7) Lactic Acid Level 1.1 mmol/L (0.4-2.0) Magnesium Level 2.2 mg/dL (1.6-2.6) Ferritin 40.0 ng/mL (10-291) Lactate Dehydrogenase 220 U/L (120-246) C-Reactive Protein High Sensitivity 1.70 mg/dL (<1.0) Vitamin D 25-Hydroxy 23.6 ng/mL (30.0-100) Thyroid Stimulating Hormone (TSH) 1.50 uIU/mL (0.55-4.78) Blood Gas Specimen Type Arterial Blood Gas Sample Site Right radial Blood Gas Patient Temperature 37.0 Arterial Blood Date Drawn [id number] Arterial Blood pH 7.460 (7.350-7.450) Arterial Blood Partial Pressure CO2 30.9 mmHg (32.0-45.0) Arterial Blood Partial Pressure O2 66.4 mmHg (83.0-108.0) Arterial Blood HCO3 21.5 mmol/L (21.0-28.0) Arterial Blood Oxygen Saturation 94.1 % (94.0-98.0) Arterial Blood Base Excess -1.2 mmol/L (-2.0-3.0) Arterial Blood Oxyhemoglobin 92.6 % (94.0-98.0) Arterial Blood Carboxyhemoglobin 1.0 % (0.5-1.5) Arterial Blood Methemoglobin 0.6 % (0.0-1.5) Horacio Test Yes Blood Gas Total Hemoglobin 15.40 g/dL (12.0-16.0) Blood Gas Liter Flow 0.00 Blood Gas Modality Room air FiO2 % 21.0 Troponin I High Sensitivity < 3 ng/L (</=34) Test 07/23/25 17:11 Influenza Type A Antigen Negative (Negative) Influenza Type B Antigen Negative (Negative) SARS-CoV-2 Antigen (Rapid) Positive (NEGATIVE) Other Laboratory Tests 07/25/25 05:25 Brief Hx & Hospital Course: 65-year-old female came in for shortness of breaths. Tested positive for COVID. Community-acquired pneumonia treated with the azithromycin Decadron zinc vitamin-C remdesivir patient has improved and at the time of discharge on room air. Discharged home on azithromycin vitamin-C zinc. Condition fair. Consults/Reason for consult None Operations or Procedures None Condition at Discharge: Fair Final Diagnosis/Problems List COVID-19 positive pneumonia improving, Acute hypoxic respiratory failure secondary to COVID pneumonia, currently on room air Left lower lobe community-acquired Pneumonia: Azithromycin Decadron zinc vitamin-C remdesivir, improving Hypoxemia Hypertension Discharge Disposition: Home Discharge Instruct/Medications Diet: Regular Activity: Light activity Follow Up/Referral: Use medications as prescribed Follow up with the primary Dr in one week Medications: Thiamine Folic acid Vitamin-C Azithromycin [facility] Scheduled Ascorbic Acid (Vitamin C), 500 MG PO BID Azithromycin (Azithromycin), 1 TAB PO DAILY Folic Acid (Folic Acid), 1 MG PO DAILY Metoprolol Succinate (Toprol Xl), 1 TAB PO BID, (Reported) Thiamine HCl (Thiamine Hydrochloride), 100 MG PO DAILY 35 (Time taken for discharge summary 35 minutes) Discharge Statement: "Patient was advised to return to the ER or call 911 if any headaches, dizziness, shortness of breath, chest pain, abdominal pain, bleeding, fevers, or worsening of medical condition. Patient was counseled about treatment plan, medications, possible side effects, patientverbalized understanding. All questions were answered to the best of my ability. This discharge took greater then 30 minutes in planning, reviewing documentation, counseling the patient, and discussing with other team members." ASSESSMENT ASSESSMENT Hospital Course Uneventful Assessment COVID-19 positive pneumonia improving, Acute hypoxic respiratory failure secondary to COVID pneumonia, currently on room air Left lower lobe community-acquired Pneumonia: Azithromycin Decadron zinc vitamin-C remdesivir, improving Hypoxemia Hypertension Date of Service: Jul 26, 2025 Billing Provider: ALISTAIR DRAPER MD Common Visit Codes: 76676-GFV/OBS DISCH DAY >30min ALISTAIR DRAPER MD Jul 26, 2025 09:49
[2025-07-26 10:00] VITALS: O2SAT 92
== END 2025-07-26 12:07 | disposition home or self-care (01) | DRG 177 ==
LOC: ER 16:28 → OVERFLOW 07-24 04:30 → TELE-EAST 07-24 09:13
PROVIDERS: ADMIT Family Medicine; ATTEND Family Medicine
PROC: XW033E5 Introduction of Remdesivir Anti-infective into Peripheral Vein, Percutaneous Approach, New Technology Group 5 (ICD-10-PCS; principal; 2025-07-24)
DX: U07.1 COVID-19 (principal); J12.82 Pneumonia due to coronavirus disease 2019; J96.01 Acute respiratory failure with hypoxia; J98.11 Atelectasis; I10 Essential (primary) hypertension; F17.210 Nicotine dependence, cigarettes, uncomplicated; E11.9 Type 2 diabetes mellitus without complications; Z90.49 Acquired absence of other specified parts of digestive tract; Z86.16 Personal history of COVID-19; Z88.2 Allergy status to sulfonamides
CPT/HCPCS: 36415; 36600; 71045; 71046; 80053; 82306; 82728; 82805; 83036; 83605; 83615; 83735; 84443; 84484; 85025; 85379; 86141; 87040; 87426; 87804; 96360; G0378; J1100